=== PATIENT | male | born 1965 | race Caucasian/White ===

== ENCOUNTER 2020-12-27 17:59 | Emergency (ER) | payer OTHER ==
[2020-12-27 19:40] LABS: BASOPHIL 0.4 % (0-2); EOSINOPHIL 2.5 % (0-5); HCT 43.1 % (42.0-52.0); HGB 14.3 g/dl (13.2-18.0); MCH 30.9 pg (25.0-31.0); MCHC 33.2 g/dL (32.0-36.0); MCV 93.1 fL (78.0-100.0); MONOCYTE 9.7 % (0-12); NEUTROPHIL 70.8 % (41-80); NRBC 0; PLT 215 K/uL (150-400); RBC 4.63 M/uL (4.70-6.00); WBC 10.8 K/uL (4.0-10.5)
[2020-12-27 19:53] LABS: ALBUMIN 3.6 g/dL (3.4-5.0); BILIRUBIN - TOTAL 0.6 mg/dL (0.2-1.0); GLOBULIN (CALCULATION) 4.1 g/dL; POTASSIUM 5.1 mmol/L (3.5-5.1); TOTAL PROTEIN 7.7 g/dL (6.4-8.2)
[2020-12-27 20:00] LABS: PRO-BNP 95 pg/mL (<125)
[2020-12-28] MEDS ORDERED: LEVAQUIN750 MG PO ×6 (02:26→02:34)
[2020-12-28] MEDS ORDERED: MEDROL 4MG DOSEP4 MG PO ×6 (02:26→02:34)
== END 2020-12-28 04:01 | disposition home or self-care (01) ==
LOC: FER 17:59
PROVIDERS: Emergency Medicine Emergency Medical Services
DX: U07.1 COVID-19 (principal); R00.0 Tachycardia, unspecified; J44.9 Chronic obstructive pulmonary disease, unspecified; I10 Essential (primary) hypertension; F17.210 Nicotine dependence, cigarettes, uncomplicated
CPT/HCPCS: 36415; 36600; 71045; 71275; 80053; 82803; 83880; 84484; 85025; 85379; 87070; 87205; 93005; 94640; 94664; 94762; J2930; Q9967; U0002